=== PATIENT | male | born 1970 | race Caucasian/White ===

== ENCOUNTER → 2017-06-06 | Outpatient (CLI) | payer OTHER ==
--- NOTE | 2017-06-06 16:59 | RADRPT ---
PROCEDURE: XR Pelvis and Hips. CLINICAL INDICATION: Pelvic pain. Bilateral hip pain. TECHNIQUE: Five views. Frontal pelvis. Frontal and lateral right hip. Frontal and lateral left hip. COMPARISON: 12/05/2015. FINDINGS: The upper pelvis is not included on the images. There is no fracture or dislocation. The soft tissues are normal. There are moderate degenerative changes of both hips with small osteophytes and joint space narrowin g. Left is worse than right. There is no lytic or blastic lesion. There is no radiopaque foreign body. IMPRESSION: 1. Upper pelvis not included on the images. 2. Moderate degenerative changes of both hips with left worse than right. 3. Otherwise unremarkable x-ray pelvis and bilateral hips. RPTAT: QQ .Dmitri West MD, Date Time Electronically viewed and signed by .Dmitri West MD, on 06/06/2017 16:59 .R/
--- NOTE | 2017-06-07 12:26 | HKNOTE ---
DATE OF SERVICE: 06/06/2017 CHIEF COMPLAINT: Left hip pain. HISTORY OF PRESENT ILLNESS: This is a 47-year-old male who was previously seeing Dr. Kvng lombardi or bilateral hip osteoarthritis. He has lumbar disk herniations and has recently started physical t herapy for core strengthening. He has noticed improvement in his back and hip pain. He states that the pain is intermittent. He takes meloxicam and ibuprofen. He denies any night pain or rest pain . He does not use any assist devices. GAIT: Nonantalgic gait. No assistive device. LEFT HIP EXAM: One hundred degrees of flexion, 30 degrees external rotation, 0 degrees internal rot ation, pain with passive range of motion, nontender over the trochanter. RIGHT HIP EXAM: One hundred degrees of flexion, 30 degrees external rotation, 0 degrees internal ro tation, pain with passive range of motion, nontender over the trochanter. X-RAYS AP PELVIS: X-rays of the pelvis demonstrate minimal degenerative joint disease of the right hip and [id number] degenerative joint disease of the left hip with joint space narrowing and s ubchondral sclerosis. IMPRESSION: A 47-year-old male with bilateral hip osteoarthritis. PLAN: He will continue physical therapy. He can take ibuprofen for pain control. If he continues to have pain in the future I discussed a left hip cortisone injection. He will follow up as needed. Dictated By: EFRAIN VILLAGOMEZ/FRIDA Conf#: [id number] DID#: [id number]
== END | disposition home or self-care (01) ==
LOC: HKI 17:15
PROVIDERS: ATTEND Orthopaedic Surgery Adult Reconstructive Orthopaedic Surgery
DX: M16.0 Bilateral primary osteoarthritis of hip (principal)
CPT/HCPCS: 73523; G0463

== ENCOUNTER 2019-02-02 07:15 | Day surgery (SDC) | payer OTHER ==
[2019-02-02] VITALS (10 sets, daily range): BP systolic 105–119; BP diastolic 54–74; PULSE 62–90; RESP 16–21; Ht 172.7 cm; Wt 82.4 kg
[~2019-02-02] VITALS: Ht 172.7 cm; Wt 82.4 kg
[2019-02-02] MEDS ORDERED: SOD CHLORIDE 0.9% 1,000 ML IV SCH (08:00)
[2019-02-02] MEDS ORDERED: CEFAZOLIN 2 GM/50 ML (PMX) 50 ML IVPB SCH (08:00)
[2019-02-02] MEDS ORDERED: LIDOCAINE 2% (MDV) 20 ML INJ ONE (09:39)
[2019-02-02] MEDS ORDERED: BUPIVACAINE 0.5% (SDV) 30 ML INJ ONE (09:39)
--- NOTE | 2019-02-02 10:00 | PREAC ---
Date/Time of Note Date/Time of Note DATE: 02/02/19 TIME: 09:58 Anesthesia Eval and Record Evaluation Time Pre-Procedure Interview DATE: 02/02/19 TIME: 09:58 Age 48 Sex male NPO: 8 hrs Preoperative diagnosis L wrist dorsal ganglion cyst Planned procedure L wrist dorsal ganglion cystectomy Past Medical History Past Medical History: Includes Pulm: Asthma (last asthma attack 2 years ago) Musculoskeletal: Other (Osteoporosis L hip) Surgery & Anesthesia Issues No known issue (L knee surgery) Meds Anticoagulation: No Beta Monique within 24 hr: No Reason Beta Monique not given: Pt. not on B-Monique No Active Prescriptions or Reported Meds Current Medications Sodium Chloride 1,000 ml @ 75 mls/hr [id number] IV Last administered on 02/02/19at 08:09; Admin Dose 75 MLS/HR; Start 02/02/19 at 08:00 Meds reviewed: Yes Allergies Coded Allergies: No Known Allergy (Unverified , 02/02/19) Allergies Reviewed: Yes Labs/Studies Labs Reviewed: Reviewed by anesthesiologist Result Diagram: 02/02/19 0755 02/02/19 0755 Laboratory Tests 02/02/19 07:55 test: N/A Pre-procedure Exam Last vitals Vital Signs Date Temp Pulse Resp B/P (MAP) Pulse Ox O2 O2 Flow FiO2 Time Delivery Rate 02/02/19 97.3 67 16 107/66 97 08:16 (80) Airway: Adequate mouth opening, Adequate thyromental dist Mallampati: Mallampati II Teeth: Normal Lung: Normal Heart: Normal ASA Physical Status ASA physical status: 2 Emergency: None Planned Anesthetic General/MAC: ETT, MAC (to the discretion of the anesthesiologist) Pre-operative Attestations Prior to commencing anesthesia and surgery, the patient was re-evaluated, there was verification of: *The patient's identity *The results of appropriate recent lab work and preoperative vital signs *The above evaluation not changing prior to induction *Anesthetic plan, risk benefits, alternative and complications discussed with patient/family; questions answered; patient/family understands, accepts and wishes to proceed. MICHELLE HUGHES Feb 02, 2019 10:00
[2019-02-02] MEDS ORDERED: DESFLURANE 15 MIN ONE (10:30)
[2019-02-02] MEDS ORDERED: GLYCOPYRROLATE 0.4 MG INJ ONE (10:35)
[2019-02-02] MEDS ORDERED: CEFAZOLIN 1 GM INJ ONE (10:35)
[2019-02-02] MEDS ORDERED: NEOSTIGMINE 3 MG/3 ML SYRINGE ONE (10:35)
[2019-02-02] MEDS ORDERED: PROPOFOL 20 ML ONE (10:35)
[2019-02-02] MEDS ORDERED: ROCURONIUM 50 MG INJ ONE (10:35)
[2019-02-02] MEDS ORDERED: MIDAZOLAM 1 MG/ML 2 ML INJ ONE (10:35)
[2019-02-02] MEDS ORDERED: FENTAnyl 50 MCG/ML VIAL ONE (10:36)
[2019-02-02] MEDS ORDERED: ONDANSETRON 4 MG INJ ONE (10:36)
[2019-02-02] MEDS ORDERED: DEXAMETHASONE 4 MG/ML 5 ML INJ ONE (10:36)
[2019-02-02] MEDS ORDERED: OXYCODONE/ACETAMINOPHEN (5/325) TAB PO PRN ×2 (11:00)
[2019-02-02] MEDS ORDERED: hydrALAzine 20 MG INJ IV PRN (11:00)
[2019-02-02] MEDS ORDERED: ONDANSETRON 4 MG INJ IV PRN (11:00)
[2019-02-02] MEDS ORDERED: TRIMETHOBENZAMIDE 100 MG/ML VIAL IM PRN (11:00)
[2019-02-02] MEDS ORDERED: LABETALOL HCL 20MG INJ IV PRN (11:00)
[2019-02-02] MEDS ORDERED: HYDROmorphONE 1 MG/5 ML IV SYRINGE IV PRN ×3 (11:00)
[2019-02-02] MEDS ORDERED: FENTAnyl 50 MCG/ML VIAL IV PRN ×3 (11:00)
[2019-02-02] MEDS ORDERED: MIDAZOLAM 1 MG/ML 2 ML INJ IV PRN (11:00)
[2019-02-02] MEDS ORDERED: DIPHENHYDRAMINE 50 MG INJ IV PRN (11:00)
[2019-02-02] MEDS ORDERED: MEPERIDINE 25 MG INJ IV PRN (11:00)
[2019-02-02] MEDS ORDERED: ALBUTEROL 0.083% (NEB) 2.5 MG/3 ML AMP HHN PRN (11:00)
[2019-02-02] MEDS ORDERED: IPRATROPIUM (NEB) 0.5 MG/2.5 ML AMP HHN PRN (11:00)
[2019-02-02] MEDS ORDERED: EPHEDrine 25 MG/5 ML SYG IV PRN (11:00)
[2019-02-02] MEDS ORDERED: BUPIVACAINE 0.25% (MPF) 30 ML INJ INJ ONE (11:23)
[2019-02-02] MEDS ORDERED: HYDROCODONE/APAP (5/325) TAB PO ONE (11:30)
--- NOTE | 2019-02-02 11:33 | OPR ---
Date/Time of Note Date/Time of Note DATE: 02/02/19 TIME: 11:30 Operative Report Procedure Date: Feb 02, 2019 Preoperative Diagnosis left wrist dorsal ganglion cyst Postoperative Diagnosis same Operation/Procedure Performed 1. left wrist dorsal ganglion cystectomy 2 cm cyst 2 cm incision 2. localized adjacent tissue transfer with the use of skin flaps 4 sq cm defect of left wrist 3. therapeutic injection of subcutaneous local anesthesia Surgeon see signature line Internet Application Developer none Anesthesia Type: general Estimated Blood Loss: 0 - 10 ml's Transfusion none Specimen left wrist dorsal ganglion cyst Grafts/Implants none Complications none Pt Condition Post Procedure: stable Indications This is a 40-year-old male with a left wrist dorsal ganglion cyst. He has pain and request surgical excision of the cyst. Risks alternatives benefits and personally discussed the patient. Potential complications include but not limited to bleeding infection wound dehiscence seroma hematoma paresthesia anesthesia chronic pain nerve injury and recurrence of ganglion cyst were discussed the patient. Patient expressed understanding and consents to the operation. Procedure Description Patient is taken to the OR and prepped and draped in usual sterile fashion. Surgical time was performed. IV antibiotics were given. Transverse incision was made with a 15 blade over the left wrist dorsal ganglion cyst. Dissection was cautery could onto the cyst. The cyst is then dissected out using mosquito graspers. The cyst wall was identified. The cyst was then ruptured in a controlled fashion and the contents are extruded. The cyst was then excised and cautery all the time to the base of the cyst. Good hemostasis stasis was established. Due to tissue defect localization to his transfer with use of skin flaps was performed. Multilayer closed with interrupted 0 Vicryl running 4-0 Monocryl. Dry dressings were applied. Yan LUDWIG Feb 02, 2019 11:33
--- NOTE | 2019-02-02 11:48 | PAC ---
Date/Time of Note Date/Time of Note DATE: 02/02/19 TIME: 11:48 Post-Anesthesia Notes Post-Anesthesia Note Last documented vital signs Vital Signs Date Temp Pulse Resp B/P (MAP) Pulse Ox O2 O2 Flow FiO2 Time Delivery Rate 02/02/19 97.3 67 16 107/66 97 08:16 (80) Activity: WNL Respiratory function: WNL Cardiovascular function: WNL Mental status: Baseline Pain reasonably controlled: Yes Hydration appropriate: Yes Nausea/Vomiting absent: Yes Krishna See M.D. Feb 02, 2019 11:48
== END 2019-02-02 13:20 | disposition home or self-care (01) ==
LOC: SDS 07:15
PROVIDERS: ATTEND Surgery
DX: M67.432 Ganglion, left wrist (principal)
CPT/HCPCS: 25111; 80053; 85025; 85610; 85730; 88304; J0690; J2250; J2710; J3010; Z7512; Z7610; J1100; J2405